=== PATIENT | male | born 1980 | race Caucasian/White ===

== ENCOUNTER 2020-04-18 13:15 | Emergency (ER) | payer SELFPAY ==
[~2020-04-18] VITALS: Ht 162.6 cm; Wt 76.2 kg
--- NOTE | 2020-04-18 13:22 | NUR ---
CALLED NAME OUT IN LOBBY, NO RESPONSE
[2020-04-18 13:23] VITALS: BP 157/95
--- NOTE | 2020-04-18 14:49 | NUR ---
C/O ANXIETY X2 DAYS, DENIES SOB/ COUGH PMH: ANXIETY NKDA
[2020-04-18 15:31] VITALS: BP 157/95
== END 2020-04-18 15:31 | disposition home or self-care (01) ==
LOC: MED 13:15
DX: F41.9 Anxiety disorder, unspecified (principal); F41.0 Panic disorder [episodic paroxysmal anxiety]
CPT/HCPCS: 99283